=== PATIENT | female | born 1955 | race Caucasian/White ===

== ENCOUNTER → 2019-07-07 | Outpatient (CLI) | payer OTHER ==
[~2019-07-07] VITALS: Ht 170.2 cm; Wt 108.9 kg
[~2019-07-07] MED LIST: CLIMARA1 EAC3 TRANSDERM; HAIR, SKIN & N1 EAC2 PO; HYDROXYCHLOROQ200 M1 PO; L-LYSINE1000 M1 PO; LEXAPRO20 MG PO; MAGNESIUM250 M1 PO; OMEGA-3 FISH1200 MG PO; POTASSIUM99 M1 PO; SUPER THERAVIT1 EACH PO; VITAMIN B-125000 MCG PO; VITAMIN D-32000 UNIT PO
--- NOTE | 2019-07-11 11:53 | P ---
[facility] [place] [address] PROCEDURE REPORT Name: KIMBERLEE SARMIENTO Room #: REG [facility].#: [id number] Admission: 07/07/19 Attend Phys: Manohar Gutierrez MD Discharge: Date of : 51 Report #: [id number] THIS REPORT FOR: //name// CC: Manohar Ramirez MD BRIEF HISTORY: The patient is a 64-year-old woman with history of 4 previous adenomas including a large flat adenoma that was removed by piecemeal polypectomy. She presents for high risk screening colonoscopy. PREOPERATIVE DIAGNOSIS: History of 4 adenomas. POSTOPERATIVE DIAGNOSES: 1. Diminutive colon polyps x 2. 2. Mild to moderate sigmoid diverticulosis coli. 3. Anal tag. MEDICATIONS: Deep sedation with propofol per anesthesia. SPECIMENS: 1. Polyp from distal transverse colon. 2. Polyp from proximal transverse colon. ESTIMATED BLOOD LOSS: 3 mL. PROCEDURE: Colonoscopy to cecum and terminal ileum with biopsy. FINDINGS: Prior to propofol sedation, the procedure of colonoscopy was discussed with the patient as well as potential risks and its complications. She indicates she understands and desires to proceed. DESCRIPTION OF PROCEDURE: With the patient in left lateral decubitus position, digital examination was completed, which revealed no abnormalities. Subsequently, the Olympus video colonoscope was introduced in the rectum, advanced under direct vision to the cecum. Done with moderate difficulty, especially traversing the sigmoid colon. However, the cecum was reached, identified by the ileocecal valve and the appendiceal orifice. I was able to visualize the distal segment of terminal ileum, which was inspected and noted to be unremarkable. At that point, the scope was slowly withdrawn and careful circumferential views were obtained. As we withdrew the scope, the prep was good. The mucosa was within normal limits, normal vascular pattern, normal light reflex. No abnormalities were noted until the proximal transverse colon was reached, at which point a diminutive polyp was seen and removed with biopsy forceps. Scope was further withdrawn and another diminutive polyp was removed with biopsy forceps from the distal transverse colon. In the very proximal descending colon, 2 tattoo sorto were seen and a large scar was seen from [facility] [address] [place] [address] PROCEDURE REPORT Name: KIMBERLEE SARMIENTO Room #: REG [facility].#: [id number] Admission: 07/07/19 Attend Phys: Manohar Gutierrez MD Discharge: Date of : 51 Report #: [id number] previous polypectomy. The site was completely healed. There is no evidence of residual polyp tissue at that level. Scope was further withdrawn and no additional neoplastic lesions were seen. She does have a tortuous sigmoid colon with [id number] sigmoid diverticular disease. There was no endoscopic evidence of diverticulitis. Scope was withdrawn in the rectum. Upon retroflexion, no abnormalities were seen. However, it is noted she does have an inflamed anal tag. There is no evidence of bleeding. The scope was withdrawn. The patient tolerated the procedure well. CONDITION OF THE PATIENT UPON DISCHARGE: Following procedure, the patient drowsy, aroused, conversant and will be discharged home when fully ambulatory. INSTRUCTIONS TO THE PATIENT AND FAMILY AT THE TIME OF DISCHARGE: We will follow up on the path. Given the history of an advanced adenoma, we will have her return in 5 years for high risk screening colonoscopy. Suggest high fiber diet for the diverticular disease. We will also give her hydrocortisone cream to use on the anal tag. Withdrawal time from the cecum was 10 minutes 13 seconds. <ELECTRONICALLY SIGNED> By: Manohar Gutierrez MD 07/11/19 1153 [id number] [id number] Manohar Gutierrez MD /nt
--- NOTE | 2019-07-11 16:06 | PATH ---
[facility] [place] [address] PATHOLOGY RPT PROCEDURE Name: KIMBERLEE SARMIENTO Room #: REG [facility].#: [id number] Admission: 07/07/19 Date of : 51 Discharge: Report #: [id number] Path Case #: [id number] [facility] Accession Number: [id number] . 01 Material submitted: . PART A: colon - POLYP AT DISTAL TRANSVERSE. Modifiers: distal, transverse PART B: colon - POLYP AT PROXIMAL TRANSVERSE. Modifiers: proximal, transverse . 01 Clinical history: . Preop DX: Hx of polyps Postop DX: Diverticulosis, colon polyps . 02 Diagnosis: A. Polyp, at distal transverse, endoscopic biopsy: - Tubular adenoma. - Negative for high-grade dysplasia. . B. Polyp, at proximal transverse, endoscopic biopsy: - Tubular adenoma. - Negative for high-grade dysplasia. (IUV:pit; 07/11/2019) QTP 07/11/2019 1228 Local . 02 Electronically signed: . Essie Sears MD, Pathologist NPI- [id number] . 01 Gross description: . A. Received in formalin labeled "Kimberlee Sarmiento, polyp at distal transverse," are two fragments of cherry soft tissue measuring 0.3 x 0.2 x 0.2 cm each in greatest dimensions. The specimen is submitted entirely in cassette A1. . B. Received in formalin labeled "Kimberlee Sarmiento, polyp at proximal transverse," is a segment of cherry-brown soft tissue measuring 0.4 x 0.2 x 0.2 cm in greatest dimensions. The specimen is submitted entirely in cassette B1. (DAC; 07/08/2019) XDC/XDC 07/08/2019 1429 Local . 02 Pathologist provided ICD-10: D12.3 . 02 CPT . 526593, [id number] Specimen Comment: A courtesy copy of this report has been sent to [phone] [address] PATHOLOGY RPT PROCEDURE Name: KIMBERLEE SARMIENTO Room #: REG [facility].#: [id number] Admission: 07/07/19 Date of : 51 Discharge: Report #: [id number] Path Case #: [id number] Specimen Comment: [id number] Specimen Comment: Report sent to / DR AGUILAR Performed at: 01 [facility] [address], [place], [place] [id number] MD Jose Purcell MD Phone: [phone] Performed at: [address] [id number] MD Essie Sears MD Phone: [phone]
== END | disposition home or self-care (01) ==
LOC: GI 06-16 16:32
DX: Z12.11 Encounter for screening for malignant neoplasm of colon (principal); Z86.010 Personal history of colon polyps; D12.3 Benign neoplasm of transverse colon; K57.30 Diverticulosis of large intestine without perforation or abscess without bleeding; K64.4 Residual hemorrhoidal skin tags; F32.9 Major depressive disorder, single episode, unspecified; G47.30 Sleep apnea, unspecified; K21.9 Gastro-esophageal reflux disease without esophagitis; Z98.890 Other specified postprocedural states; Z87.891 Personal history of nicotine dependence; Z90.710 Acquired absence of both cervix and uterus; Z96.653 Presence of artificial knee joint, bilateral; Z79.899 Other long term (current) drug therapy; Z88.0 Allergy status to penicillin; Z88.6 Allergy status to analgesic agent; Z88.8 Allergy status to other drugs, medicaments and biological substances
CPT/HCPCS: 62110; 62900